=== PATIENT | male | born 1950 | race Caucasian/White ===

== ENCOUNTER 2016-11-29 13:22 | Emergency (ER) | payer OTHER ==
[~2016-11-29] VITALS: Ht 177.8 cm; Wt 79.4 kg
--- NOTE | ~2016-11-29 | EKG ---
[address] [place] [address] ELECTROCARDIOGRAM REPORT Name: PHYLICIAGERARDO Room #: [facility] DOTHANKeanu[facility] [id number] Admission: 11/29/16 Attend Phys: Discharge: 11/29/16 Date of : 48 Report #: [id number] THIS REPORT FOR: //name// [facility] ED Test Date: 2016-11-29 Test Time: 13:32:11 Pat Name: GERARDO WHATLEY Department: Room: Gender: M Data Security Analyst: AMINA GUEVARA : 1950 Requested By: Susannah Villanueva Order Number: [id number] MD: Byron Cuenca Measurements Intervals Lillian Rate: 89 P: 44 AL: 144 QRS: 65 QRSD: 85 T: 66 QT: 356 QTc: 434 Interpretive Statements Sinus rhythm No significant abnormality Compared to ECG 12/24/2014 03:20:12 No significant changes Electronically Signed On 11-30-2016 8:42:02 CDT by Byron Cuenca [email or web address] <ELECTRONICALLY SIGNED> By: Byron Cuenca MD, [facility] 11/30/16 0842 [id number] Byron Cuenca MD, FACC /EPI
[~2016-11-29 13:22] MED LIST: AMANTADINE100 M1 PO; ASPIRIN EC81 M1 PO; BUSPAR15 MG PO; BUSPIRONE HCL10 MG PO; BYSTOLIC 5 MG5 MG PO; CELEXA; CELEXA20 MG PO; CENTRUM SILVER1 EAC4 PO; FLOMAX PO; FLOMAX0.4 MG PO; LOPRESSOR25 PO; PLAVIX 75 MG TA75 MG PO; PRINIVIL5 MG PO; PROSCAR 5MG TABL5 M1 PO; SIMVASTATIN40 MG PO; SYMMETREL; TRAMADOL 50 MG50 MG PO; UROXATRAL
[2016-11-29] MEDS ORDERED: TRAMADOL 50 MG50 MG PO (14:13)
[2016-11-29] MEDS ORDERED: [UNRECOGNIZED DRUG - OTHER] MC (14:14)
[2016-11-29 14:22] LABS: ABSOLUTE NEUTROPHILS 3.5 thou/uL (1.4-8.2); BASOPHILS 1.1 % (0.0-2.0); EOSINOPHILS 1.4 % (0.0-3.0); HEMATOCRIT 43.5 % (42.0-52.0); HEMOGLOBIN 14.7 gm/dL (14.0-18.0); LYMPHOCYTES 27.4 % (24.0-44.0); MANUAL DIFF NO; MCH 27.6 pg (26.0-34.0); MCHC 33.8 g/dL (28.0-37.0); MCV 81.8 fL (80.0-100.0); MONOCYTES 8.7 % (1.0-8.0); PLATELET COUNT 240 thou/uL (150-400); POLYS 61.4 % (36.0-66.0); RBC 5.33 mil/uL (4.50-6.00); RDW 14.1 % (10.5-14.5); WBC 5.7 thou/uL (4.0-11.0)
[2016-11-29 14:24] LABS: ANION GAP 11 mmol/L (7-16); BUN 10 mg/dL (7-18); CALCIUM 9.1 mg/dL (8.5-10.1); CHLORIDE 105 mmol/L (98-107); CO2 24 mmol/L (21-32); CREATININE 0.9 mg/dL (0.7-1.3); GLUCOSE 112 mg/dL (74-106); POTASSIUM 3.9 mmol/L (3.5-5.1); SODIUM 140 mmol/L (136-145)
[2016-11-29 14:39] LABS: NT-PRO BRAIN NAT PEPTIDE 73 pg/mL (<300); TROPONIN-I < 0.04 ng/mL (<0.04-0.07)
== END 2016-11-29 17:30 | disposition home or self-care (01) ==
LOC: ER 13:22
PROVIDERS: Emergency Medicine
DX: R07.9 Chest pain, unspecified (principal); I69.320 Aphasia following cerebral infarction; I69.959 Hemiplegia and hemiparesis following unspecified cerebrovascular disease affecting unspecified side; I10 Essential (primary) hypertension; E78.00 Pure hypercholesterolemia, unspecified; Z95.5 Presence of coronary angioplasty implant and graft; Z88.5 Allergy status to narcotic agent; Z88.8 Allergy status to other drugs, medicaments and biological substances; Z91.041 Radiographic dye allergy status; Z87.891 Personal history of nicotine dependence